=== PATIENT | female | born 1985 | race Hispanic/Latino ===

== ENCOUNTER 2018-02-21 10:54 | Emergency (ER) | payer OTHER ==
[~2018-02-21] VITALS: Ht 149.9 cm; Wt 75.7 kg
[~2018-02-21 10:54] MED LIST: COLACE100 MG PO; FEOSOL325 MG PO; LEVAQUIN500 MG PO
[2018-02-21] MEDS ORDERED: SODIUM CHLORIDE 0.9% 1000ML 1,000 ML IV STA (11:14)
[2018-02-21] MEDS ORDERED: MECLIZINE HCL 12.5 MG TAB PO ONE (11:15)
--- NOTE | 2018-02-21 12:11 | Diagnostic Imaging Report ---
EXAMINATION: Head CT HISTORY: Syncope COMPARISON: None. TECHNIQUE: Multidetector axial images were obtained without contrast from the foramen magnum to the vertex . The images were reconstructed using brain and bone algorithms. Thin section brain images were reformatted into coronal and sagittal planes. Intravenous contrast: None. Motion/streaking artifact limits the evaluation of the skull base and posterior cranial fossa. FINDINGS: Parenchyma: 1. No abnormal densities. 2. No mass or hemorrhage. No CT evidence of acute territorial vascular insult. Extra-axial spaces:No abnormal density. No extra-axial fluid collections Brain volume: Normal for age. Ventricles: No hydrocephalus or displacement. Arteries: No density suggestive of thrombus. Dural sinuses: No abnormal density. Extra-axial spaces: No abnormal density. Foramen magnum: No mass, Chiari malformation, or basilar invagination. Sella: No obvious mass. Paranasal/mastoid sinuses: Imaged portions unremarkable. Skull/Scalp: No lytic or blastic lesions. No fractures. IMPRESSION: Normal head CT. Signed by: Dr. Shabana Che M.D. on 02/21/2018 12:07 PM
[2018-02-21 12:30] LABS: BASOPHILS # (AUTO) 0.1 (0.0-0.1); BASOPHILS % 0.5 % (0.0-1.0); EOSINOPHILS # (AUTO) 0.1 (0.0-0.4); EOSINOPHILS % 0.8 % (0.0-6.0); HEMOGLOBIN 12.1 g/dL (12.0-16.0); LYMPHOCYTES % 25.1 % (18.0-39.1); MEAN CORPUSCULAR HEMOGLOBIN 26.3 pg (28-32); MEAN CORPUSCULAR HGB CONC 32.7 g/dL (31-35); MEAN CORPUSCULAR VOLUME 80.4 fL (81-99); MONOCYTES # (AUTO) 0.9 (0.2-0.8); MONOCYTES % 7.3 % (4.4-11.3); NEUTROPHILS % 65.8 % (38.7-80.0); PLATELET COUNT 346 x10e3/uL (140-360); RED CELL DISTRIBUTION WIDTH 13.5 % (11.7-14.4)
[2018-02-21 12:31] LABS: BILIRUBIN,URINE NEGATIVE (NEGATIVE); KETONES,URINE NEGATIVE (NEGATIVE); LEUKOCYTE ESTERASE ,URINE 1+ (NEGATIVE); NITRITE,URINE NEGATIVE (NEGATIVE); PROTEIN,URINE DIPSTICK NEGATIVE (NEGATIVE); URINE UROBILINOGEN 0.2 mg/dL (0.2 - 1)
[2018-02-21 12:34] LABS: CLARITY,URINE CLEAR (CLEAR); COLOR,URINE YELLOW (YELLOW)
[2018-02-21 12:45] LABS: ALANINE AMINOTRANSFERASE 27 IU/L (0-55); ALBUMIN 3.9 g/dL (3.5-5.0); ALKALINE PHOSPHATASE 83 IU/L (40-150); ANION GAP 11.1 mmol/L (8-16); BLOOD UREA NITROGEN 14 mg/dL (7-26); BUN/CREATININE RATIO 19 (6-25); CALCIUM 9.3 mg/dL (8.4-10.2); CARBON DIOXIDE 29 mmol/L (22-29); CHLORIDE 102 mmol/L (98-107); CREATININE, SERUM 0.73 mg/dL (0.57-1.11); EST GLOMERULAR FILTRATION RATE > 60 ML/MIN (60-); GLUCOSE 96 mg/dL (74-118); POTASSIUM 4.1 mmol/L (3.5-5.1); SODIUM 138 mmol/L (136-145)
[2018-02-21 12:48] LABS: BACTERIA,URINE MANY /HPF; EPITHELIAL CELLS,URINE FEW /LPF
[2018-02-21] MEDS ORDERED: IBUPROFEN 600 MG TAB PO STA (12:54)
== END 2018-02-21 13:43 | disposition home or self-care (01) ==
LOC: ER 10:54
DX: R11.2 Nausea with vomiting, unspecified (principal); H81.399 Other peripheral vertigo, unspecified ear
CPT/HCPCS: 36415; 70450; 80053; 81001; 84702; 85025; 93005; 99284; J7030

== ENCOUNTER 2019-07-15 19:34 | Inpatient (IN) | payer OTHER ==
[~2019-07-15] VITALS: Ht 149.9 cm; Wt 84.4 kg
--- OUTSIDE RECORDS SUMMARY | 2019-07-15 19:36 | XMS REPORT ---
Author Author [facility] Address Unknown Phone Unavailable Care Team Providers Care Investigator Claims Name Role Phone Sergey YOUNG Unavailable Unavailable Payers Payer Name Policy Type Policy Number Effective Date Expiration Date Problems This patient has no known problems. Allergies, Adverse Reactions, Alerts This patient has no known allergies or adverse reactions. Medications This patient has no known medications. Results Test Description Test Time Test Comments Text Results Atomic Results Result Comments - [employer] 2019-07-15 12:04:00 Name: ELODIA LODNONO [facility] : 1985 Age/S: 34 / F [address] [facility] Unit #: [id number] Loc: [place] [address] Phys: Supa Eric MD Acct: [id number] Dis Date: Status: REG CLI PHONE #: [phone] Exam Date: 07/15/2019 1125 FAX #: [phone] Reason: CALCULUS OF KIDNEY WITH CALCULUS OF URETER EXAMS: CPT CODE: [id number] [employer] [id number] HISTORY: Calculus of the kidney. COMPARISON: Ultrasound from September 08, 2016. Both kidneys are free from hydronephrosis. Calyceal stone in the right lower pole measured 1.1 cm. No stones on the left. Relatively normal echogenicity and texture with lobular contour on the right. No perinephric collections. Right kidney measured 9.1 x 4.8 x 4.5 cm. Left kidney measured 14 x 6.2 x 6.1 cm. Unremarkable incompletely distended urinary bladder without wall thickening or mural nodules. Left ureteral jet is documented however the right ureteral jet is not seen. IMPRESSION: No hydronephrosis on either side with 1 cm right lower pole calyceal stone. Normal echogenicity and texture. Ureteral jet is documented on the left but not on the right. No wall thickening within the urinary bladder. No mural nodules. at 1204 Reported and signed by: Morgan Forrest M.D. CC: Supa Eric MD Technologist: KOFI FLOYD RT(R),RDMS [facility] Date/Time: 07/15/2019 (2948) [email or web address] Orig Print D/T: S: 07/15/2019 (9379) Probe: PAGE 1 Signed Report - XR FOOT 3 + V LT 2019-05-31 17:19:00 FAX: Supa Quinones MD [phone] [place]: [address]: REG FAX: Nettie Ngo [phone] Name: ELODIA LONDONO [facility] : 1985 Age/S: 34/F [address] [facility] Unit #: [id number] Loc: [place] [address] Phys: Nettie Ruiz Acct: [id number] Dis Date: Status: REG CLI PHONE #: [phone] Exam Date: 05/31/2019 1700 FAX #: [phone] Reason: PAIN LT FOOT EXAMS: CPT CODE: [id number] XR FOOT 3 + [place] LT [address] REASON FOR EXAM: PAIN LT FOOT EXAM ORDER DATE: 05/31/2019 4:52 PM Ordering Erica: Nettie Ruiz PROCEDURE: - XR FOOT 3 + V LT FINDINGS: 3 views of the left foot were obtained. The osseous structures are unremarkable in size and shape. The joint spaces are maintained. No evidence of fracture. The phalanges are intact. The metatarsal and tarsal bones are unremarkable IMPRESSION: Unremarkable left foot at 2970 Reported and signed by: Rg [facility] M.D. CC: Supa Eric MD; Nettie Ruiz Technologist: Eusebio DE LUNA(R) Trnscrd Date/Time/By: 05/31/2019 (2661) : By: RoseliaL Orig Print D/T: S: 05/31/2019 (8423) PAGE [address] BRAIN WO [place] [address] Patient Name: ELODIA LONDONO I MR #: [id number] : 1985 Age/Sex: 33/F Req #: [id number] Adm Physician: Ordered by: DAVID WILLIAM COMMERCIAL REPRESENTATIVE Report #: [id number] Location: ER Room/Bed: Procedure: [id number] CT/CT BRAIN WO Exam Date: 02/21/18 Exam Time: 1153 REPORT STATUS: Signed EXAMINATION: Head CT HISTORY: Syncope COMPARISON: None. TECHNIQUE: Multidetector axial images were obtained without contrast from the foramen magnum to the vertex . The images were reconstructed using brain and bone algorithms. Thin section brain images were reformatted into coronal and sagittal planes. Intravenous contrast: None. Motion/streaking artifact limits the evaluation of the skull base and posterior cranial fossa. FINDINGS: Parenchyma: 1. No abnormal densities. 2. No mass or hemorrhage. No CT evidence of acute territorial vascular insult. Extra-axial spaces:No abnormal density. No extra-axial fluid collections Brain volume: Normal for age. Ventricles: No hydrocephalus or displacement. Arteries: No density suggestive of thrombus. Dura l sinuses: No abnormal density. Extra-axial spaces: No abnormal density. Foramen magnum: No mass, Chiari malformation, or basilar invagination. Sella: No obvious mass. Paranasal/mastoid sinuses: Imaged portions unremarkable. Skull/Scalp: No lytic or blastic lesions. No fractures. IMPRESSION: Normal head CT. Signed by: Dr. Shabana Che M.D. on 02/21/2018 12:07 PM Dictated By: SHABANA CHE MD 120 Transcribed By: CANDY on 02/21/181206 COPY TO: DAVID WILLIAM NP
[2019-07-15 20:42] LABS: BILIRUBIN,URINE NEGATIVE (NEGATIVE); CLARITY,URINE CLOUDY (CLEAR); COLOR,URINE YELLOW (YELLOW); KETONES,URINE NEGATIVE (NEGATIVE); LEUKOCYTE ESTERASE ,URINE TRACE (NEGATIVE); NITRITE,URINE NEGATIVE (NEGATIVE); PROTEIN,URINE DIPSTICK 1+ (NEGATIVE); URINE UROBILINOGEN 1 mg/dL (0.2 - 1)
[2019-07-15 20:44] LABS: BASOPHILS # (AUTO) 0.1 (0.0-0.1); BASOPHILS % 0.3 % (0.0-1.0); EOSINOPHILS % 0.1 % (0.0-6.0); LYMPHOCYTES # (AUTO) 2.1 (1.0-3.2); MEAN CORPUSCULAR HEMOGLOBIN 24.7 pg (28-32); MEAN CORPUSCULAR HGB CONC 31.4 g/dL (31-35); MEAN CORPUSCULAR VOLUME 78.5 fL (81-99); NEUTROPHILS # (AUTO) 13.5 (2.1-6.9); NEUTROPHILS % 75.9 % (38.7-80.0); PLATELET COUNT 328 x10e3/uL (140-360); RED BLOOD COUNT 4.46 x10e6/uL (3.6-5.1); RED CELL DISTRIBUTION WIDTH 15.5 % (11.7-14.4)
[2019-07-15 20:51] LABS: PREGNANCY TEST, URINE NEGATIVE (NEGATIVE)
[2019-07-15 20:56] LABS: ALANINE AMINOTRANSFERASE 39 IU/L (0-55); ALBUMIN 3.8 g/dL (3.5-5.0); ALBUMIN/GLOBULIN RATIO 0.9 (0.8-2.0); ALKALINE PHOSPHATASE 79 IU/L (40-150); ANION GAP 12.9 mmol/L (8-16); BLOOD UREA NITROGEN 12 mg/dL (7-26); BUN/CREATININE RATIO 13 (6-25); CALCIUM 9.2 mg/dL (8.4-10.2); CARBON DIOXIDE 28 mmol/L (22-29); CHLORIDE 99 mmol/L (98-107); CREATININE, SERUM 0.92 mg/dL (0.57-1.11); EST GLOMERULAR FILTRATION RATE > 60 ML/MIN (60-); GLUCOSE 114 mg/dL (74-118); POTASSIUM 3.9 mmol/L (3.5-5.1); SODIUM 136 mmol/L (136-145)
[2019-07-15 21:17] LABS: AMORPHOUS SEDIMENT,URINE FEW (FEW); BACTERIA,URINE MODERATE /HPF; EPITHELIAL CELLS,URINE MANY /LPF
[2019-07-15] MEDS: ACETAMINOPHEN 325 MG TAB PO PRN (21:45)
[2019-07-15] MEDS ORDERED: IOPAMIDOL 370 MG/ML 200 ML INFUS..BTL INJ ONE (21:48)
[2019-07-15] MEDS ORDERED: SODIUM CHLORIDE 0.9% 50ML 50 ML ONE (21:48)
--- NOTE | 2019-07-15 22:21 | Diagnostic Imaging Report ---
EXAM: CT Abdomen and Pelvis WITH contrast INDICATION: RIGHT FLANK PAIN COMPARISON: None. TECHNIQUE: Abdomen and pelvis were scanned utilizing a multidetector helical scanner from the lung base to the pubic symphysis after administration of IV contrast. Coronal and sagittal reformations were obtained. Routine protocol was performed. Scan was performed when during portal venous phase. IV CONTRAST: 100 mL of Isovue 370 ORAL CONTRAST: Water COMPLICATIONS: None RADIATION DOSE: Total DLP: 648 mGy*cm Estimated effective dose: (DLP x 0.015 x size factor) mSv CTDIvol has been reviewed. It is below the limits set by the Radiation Protocol Committee (RPC). Dose modulation, iterative reconstruction, and/or weight based adjustment of the mA/kV was utilized to reduce the radiation dose to as low as reasonably achievable. FINDINGS: LINES and TUBES: None. LOWER THORAX: Unremarkable HEPATOBILIARY: Relatively low hepatic attenuation and mild hepatomegaly. No focal hepatic lesions. No biliary ductal dilation. GALLBLADDER: No radio-opaque stones or sludge. No wall thickening. SPLEEN: No splenomegaly. PANCREAS: No focal masses or ductal dilatation. ADRENALS: No adrenal nodules KIDNEYS/URETERS: Chronic scarring and volume loss of the mid and inferior pole of the right kidney with a 0.8 cm nonobstructive calculus in the right renal inferior pole calyx. Mild right perinephric fat stranding and mild urothelial thickening of the right renal pelvis and proximal ureter. No hydronephrosis. No cystic or solid mass lesions. GI TRACT: No abnormal distention, wall thickening, or evidence of bowel obstruction. Appendix is normal. PELVIC ORGANS/BLADDER: Small corpus luteum in the left ovary. No radiopaque stones in the bladder lumen. LYMPH NODES: No lymphadenopathy. VESSELS: Unremarkable. PERITONEUM / RETROPERITONEUM: No free air or fluid. BONES: Unremarkable. SOFT TISSUES: There is a fat containing para-umbilical hernia. IMPRESSION: 1. Findings raise suspicion for right ascending urinary tract infection/pyelonephritis on a background of right renal mid and inferior pole scarring. There is also a nonobstructive 0.9 cm calculus in the right renal inferior pole calyx. 2. Hepatomegaly with hepatic steatosis. Signed by: Edgar Miramontes DO on 07/15/2019 10:17 PM
[2019-07-15] MEDS: CEFTRIAXONE SOD 1 GM/NS 50 ML 50 ML IV SCH (22:29)
[2019-07-15] MEDS: SODIUM CHLORIDE 0.9% 1000ML 1,000 ML IV SCH (22:44)
[2019-07-15] MEDS ORDERED: METFORMIN HCL500 M1 PO (22:47)
--- NOTE | 2019-07-15 23:12 | NUR ---
Pt arrived to unit at this time via stretcher. Pt is present. Pt is in no apparent distress. Pt oriented to room and call light. Initial assessment completed, VSS. No fever noted at this time. Pain is 2/10 in the Right Flank. Ice water provided to patient. Will continue to monitor.
[2019-07-15 23:24] VITALS: BP 123/71
[2019-07-16] VITALS (9 sets, daily range): BP systolic 114–158; BP diastolic 57–85
--- NOTE | 2019-07-16 01:36 | NUR ---
Rounds made at this time. Pt has no c/o pain. Warm blanket provided. Will continue to monitor.
[2019-07-16] MEDS: ACETAMINOPHEN 325 MG TAB PO PRN ×2 (03:52→16:31)
[2019-07-16 06:07] LABS: BASOPHILS % 0.2 % (0.0-1.0); HEMATOCRIT 30.7 % (34.2-44.1); HEMOGLOBIN 9.7 g/dL (12.0-16.0); LYMPHOCYTES # (AUTO) 2.3 (1.0-3.2); LYMPHOCYTES % 12.2 % (18.0-39.1); MEAN CORPUSCULAR HEMOGLOBIN 24.9 pg (28-32); MEAN CORPUSCULAR HGB CONC 31.6 g/dL (31-35); MEAN CORPUSCULAR VOLUME 78.7 fL (81-99); MONOCYTES # (AUTO) 2.3 (0.2-0.8); MONOCYTES % 12.5 % (4.4-11.3); NEUTROPHILS # (AUTO) 13.8 (2.1-6.9); NEUTROPHILS % 74.4 % (38.7-80.0); PLATELET COUNT 288 x10e3/uL (140-360); RED CELL DISTRIBUTION WIDTH 15.5 % (11.7-14.4)
[2019-07-16 06:37] LABS: ALANINE AMINOTRANSFERASE 32 IU/L (0-55); ALBUMIN 3.3 g/dL (3.5-5.0); ALBUMIN/GLOBULIN RATIO 0.9 (0.8-2.0); ALKALINE PHOSPHATASE 68 IU/L (40-150); ANION GAP 10.6 mmol/L (8-16); BLOOD UREA NITROGEN 9 mg/dL (7-26); BUN/CREATININE RATIO 12 (6-25); CALCIUM 8.5 mg/dL (8.4-10.2); CARBON DIOXIDE 25 mmol/L (22-29); CHLORIDE 99 mmol/L (98-107); CREATININE, SERUM 0.74 mg/dL (0.57-1.11); EST GLOMERULAR FILTRATION RATE > 60 ML/MIN (60-); GLUCOSE 105 mg/dL (74-118); POTASSIUM 3.6 mmol/L (3.5-5.1); SODIUM 131 mmol/L (136-145)
[2019-07-16] MEDS: SODIUM CHLORIDE 0.9% 1000ML 1,000 ML IV SCH ×2 (06:37→14:51)
--- NOTE | 2019-07-16 07:08 | NUR ---
Consult for Dr. Mackenzie called and placed at this time.
[2019-07-16 07:49] LABS: LYMPHOCYTES % (MANUAL) 12 % (19-48); MONOCYTES % (MANUAL) 12 % (3.4-9.0); NEUTROPHILS % (MANUAL) 76 % (40-74)
[2019-07-16 07:51] LABS: RBC MORPHOLOGY COMMENT NORMAL
[2019-07-16] MEDS: KETOROLAC TROMETHAMINE 30 MG/ML VIAL IV PRN (11:16)
[2019-07-16] MEDS: HYDROMORPHONE 2MG/ML 2 MG/ML ML IV PRN (21:38)
[2019-07-16] MEDS: CEFTRIAXONE SOD 1 GM/NS 50 ML 50 ML IV SCH (21:40)
[2019-07-17] MEDS: SODIUM CHLORIDE 0.9% 1000ML 1,000 ML IV SCH ×4 (00:37→23:35)
[2019-07-17] MEDS: HYDROMORPHONE 2MG/ML 2 MG/ML ML IV PRN (04:35)
[2019-07-17 04:42] VITALS: BP 126/65
[2019-07-17 05:42] LABS: BASOPHILS % 0.3 % (0.0-1.0); EOSINOPHILS % 0.1 % (0.0-6.0); LYMPHOCYTES # (AUTO) 2.3 (1.0-3.2); LYMPHOCYTES % 15.9 % (18.0-39.1); MEAN CORPUSCULAR HEMOGLOBIN 24.7 pg (28-32); MEAN CORPUSCULAR VOLUME 79.7 fL (81-99); MONOCYTES # (AUTO) 1.6 (0.2-0.8); MONOCYTES % 10.9 % (4.4-11.3); NEUTROPHILS # (AUTO) 10.4 (2.1-6.9); NEUTROPHILS % 72.3 % (38.7-80.0); PLATELET COUNT 244 x10e3/uL (140-360); RED BLOOD COUNT 3.64 x10e6/uL (3.6-5.1); RED CELL DISTRIBUTION WIDTH 15.3 % (11.7-14.4)
[2019-07-17 06:01] LABS: ALANINE AMINOTRANSFERASE 30 IU/L (0-55); ALBUMIN/GLOBULIN RATIO 0.8 (0.8-2.0); ALKALINE PHOSPHATASE 74 IU/L (40-150); ANION GAP 12.3 mmol/L (8-16); BLOOD UREA NITROGEN 9 mg/dL (7-26); BUN/CREATININE RATIO 14 (6-25); CALCIUM 8.4 mg/dL (8.4-10.2); CARBON DIOXIDE 23 mmol/L (22-29); CHLORIDE 102 mmol/L (98-107); CREATININE, SERUM 0.66 mg/dL (0.57-1.11); EST GLOMERULAR FILTRATION RATE > 60 ML/MIN (60-); GLUCOSE 90 mg/dL (74-118); POTASSIUM 4.3 mmol/L (3.5-5.1); SODIUM 133 mmol/L (136-145)
[2019-07-17 06:22] LABS: LYMPHOCYTES % (MANUAL) 16 % (19-48); MONOCYTES % (MANUAL) 11 % (3.4-9.0); NEUTROPHILS % (MANUAL) 73 % (40-74)
[2019-07-17 06:24] LABS: PLATELET ESTIMATE MODERATELY INCREASED; RBC MORPHOLOGY COMMENT NORMAL
--- NOTE | 2019-07-17 07:24 | NUR ---
Patient endorsed to next shift for continuity of care.
[2019-07-17 08:16] VITALS: BP 136/70
[2019-07-17] MEDS: ONDANSETRON HCL INJ 2MG/ML 2ML 2 MG/ML VIAL IV PRN (11:44)
--- NOTE | 2019-07-17 11:46 | NUR ---
Dr. Phillips notified regarding n/v. Pt stated she had episode of vomiting this morning, after breakfast. New orders received at this time.
[2019-07-17 11:50] VITALS: BP 130/74
--- NOTE | 2019-07-17 14:22 | NUR ---
Dr. Crawford at bedside. New orders received.
--- NOTE | 2019-07-17 16:35 | NUR ---
Received patient via wheelchair. AAOX4 to time, person, place, situation. Respirations even and unlabored. Oriented patient to room. Instructed to use call light for assistance. Voiced understanding. Will continue to monitor.
[2019-07-17] MEDS: ACETAMINOPHEN 325 MG TAB PO PRN (17:16)
--- NOTE | 2019-07-17 19:10 | NUR ---
Report given to oncoming nurse of patient's status. Resting in bed. No s/s of acute distress noted. Side rails upx2, call light within reach.
[2019-07-17 20:14] VITALS: BP 114/78
[2019-07-17 20:50] VITALS: BP 114/78
[2019-07-17] MEDS: CEFTRIAXONE SOD 1 GM/NS 50 ML 50 ML IV SCH (20:50)
--- NOTE | 2019-07-17 20:50 | NUR ---
PATIENT IS A0X3 NO SIGNS OF DISTRESS NOTED. PATIENT VOICED PAIN AT 2 OUT OF 10 AND SAYS SHE IS FEELING BETTER. IV PUMP IS FLOWING AT ORDERED RATE, BOTH SIDE RAILS ARE UP, BED IS LOCKED AND LOW, CALL LIGHT WITHIN REACH, WILL CONTINUE TO MONITOR.
[2019-07-17 23:31] VITALS: BP 112/76
[2019-07-18] VITALS (7 sets, daily range): BP systolic 98–138; BP diastolic 65–86
[2019-07-18] MEDS: ONDANSETRON HCL INJ 2MG/ML 2ML 2 MG/ML VIAL IV PRN ×2 (02:04→21:20)
[2019-07-18] MEDS: KETOROLAC TROMETHAMINE 30 MG/ML VIAL IV PRN ×2 (02:04→21:20)
[2019-07-18] MEDS: SODIUM CHLORIDE 0.9% 1000ML 1,000 ML IV SCH ×3 (08:31→21:20)
--- NOTE | 2019-07-18 16:22 | NUR ---
patient up in bed, not in any distress, denies any pain this time
[2019-07-18] MEDS: CEFTRIAXONE SOD 1 GM/NS 50 ML 50 ML IV SCH (21:20)
--- NOTE | 2019-07-18 21:20 | NUR ---
PATIENT AOX3 NO DISTRESS NOTED. COMPLAINS OF FLANK PAIN AND WAS MEDICATED ORDERED. IV IS RUNNING AT ORDERED RATE, AND IS PATENT AND FLOWING. BED IS LOCKED AND LOW, CALL LIGHT WITHIN REACH, WILL CONTINUE TO MONITOR.
[2019-07-19] VITALS (9 sets, daily range): BP systolic 110–145; BP diastolic 66–91
[2019-07-19] MEDS: SODIUM CHLORIDE 0.9% 1000ML 1,000 ML IV SCH ×3 (05:39→22:24)
[2019-07-19 06:38] LABS: BASOPHILS # (AUTO) 0.1 (0.0-0.1); BASOPHILS % 0.6 % (0.0-1.0); EOSINOPHILS # (AUTO) 0.2 (0.0-0.4); EOSINOPHILS % 1.9 % (0.0-6.0); HEMATOCRIT 29.7 % (34.2-44.1); HEMOGLOBIN 9.4 g/dL (12.0-16.0); LYMPHOCYTES # (AUTO) 2.7 (1.0-3.2); LYMPHOCYTES % 34.9 % (18.0-39.1); MEAN CORPUSCULAR HGB CONC 31.6 g/dL (31-35); MONOCYTES # (AUTO) 0.6 (0.2-0.8); MONOCYTES % 7.6 % (4.4-11.3); NEUTROPHILS # (AUTO) 4.3 (2.1-6.9); NEUTROPHILS % 54.5 % (38.7-80.0); PLATELET COUNT 251 x10e3/uL (140-360); RED BLOOD COUNT 3.76 x10e6/uL (3.6-5.1); RED CELL DISTRIBUTION WIDTH 15.3 % (11.7-14.4)
[2019-07-19 07:00] LABS: ALANINE AMINOTRANSFERASE 29 IU/L (0-55); ALBUMIN/GLOBULIN RATIO 0.8 (0.8-2.0); ALKALINE PHOSPHATASE 70 IU/L (40-150); ANION GAP 11.9 mmol/L (8-16); BLOOD UREA NITROGEN 9 mg/dL (7-26); BUN/CREATININE RATIO 15 (6-25); CALCIUM 8.9 mg/dL (8.4-10.2); CARBON DIOXIDE 22 mmol/L (22-29); CHLORIDE 110 mmol/L (98-107); EST GLOMERULAR FILTRATION RATE > 60 ML/MIN (60-); GLUCOSE 88 mg/dL (74-118); MAGNESIUM 1.9 MG/DL (1.3-2.1); POTASSIUM 3.9 mmol/L (3.5-5.1); SODIUM 140 mmol/L (136-145)
--- NOTE | 2019-07-19 07:53 | NUR ---
PATIENT UP IN BED, NOT IN ANY DISTRESS, DENIES ANY PAIN THIS TIME, CALL LIGHT IN REACH
--- NOTE | 2019-07-19 12:21 | Consultation ---
DATE OF CONSULTATION: 07/17/2019 Urologic Consultation Consultation is called by Dr. Phillips. CHIEF UROLOGIC COMPLAINT AND REASON FOR CONSULTATION: Pyelonephritis, kidney stone. HISTORY OF PRESENT ILLNESS: Mrs. Lloyd is a very pleasant 34-year-old female in her normal state of health, this began experiencing fevers and chills. She has had a right-sided kidney stone since 2015, which she has never followed up for, has had dysuria. Denied gross hematuria. PAST MEDICAL HISTORY: As above. MEDICATIONS: Please see MAR. ALLERGIES: NKDA. SOCIAL HISTORY: Denied smoking or drinking. FAMILY HISTORY: Denied urologic stones or malignancies. REVIEW OF SYSTEMS: Noncontributory, other than problems mentioned above for 12 organ systems. PHYSICAL EXAMINATION: GENERAL: Middle-aged female, in no acute distress. VITAL SIGNS: Currently, temperature 99.3, pulse 94, respirations 20, and blood pressure 118/57, height 4 feet 11 inches, weight 186 pounds. Sclerae anicteric. NECK: Supple. BACK: Without costovertebral angle tenderness bilaterally. ABDOMEN: Soft. It is nontender. It is nondistended. There is no palpable mass. No palpable hernias. No palpable adenopathy. : Normal female external genitalia. EXTREMITIES: No edema. PSYCH: Alert and mood appropriate. SKIN: Intact. Normal color. PERTINENT LABORATORY DATA: Hemoglobin 9.7, hematocrit 30.7, and platelet count 280,000, white cell count 18,500. Sodium 131, potassium 3.6, chloride 99, bicarb 25, BUN 9, creatinine 0.74, glucose 105. Urinalysis; showing 6 to 10 whites, [address] scan revealing an 8 mm right lower pole renal calculi and no hydronephrosis. IMPRESSION: 1. Right renal calculi. 2. Pyelonephritis. 3. Microscopic hematuria. 4. Urinary tract infection. 5. Leukocytosis. 6. Anemia. PLAN: Begun on broad-spectrum antibiotics. There is no hydronephrosis. No need for stenting at this current time. We will need to clean the urine and perform lithotripsy electively once infection is under control. Thank you for allowing me to participate in the care of your patient. We will be happy to follow along with you. MD JOSE Galeana/MODL /[id number] cc: Bill Phillips MD
--- NOTE | 2019-07-19 13:21 | NUR ---
Received call from Génesis PARK neighborhood planner with [employer] [phone]. She asked that we call her if any assistance needed with discharge planning.
[2019-07-19] MEDS: CEFTRIAXONE SOD 1 GM/NS 50 ML 50 ML IV SCH (21:03)
[2019-07-20] VITALS (7 sets, daily range): BP systolic 108–138; BP diastolic 56–87
[2019-07-20] MEDS: SODIUM CHLORIDE 0.9% 1000ML 1,000 ML IV SCH ×2 (03:38→13:26)
--- NOTE | 2019-07-20 05:45 | Discharge Summary ---
DISCHARGE DIAGNOSES: 1. Kidney stone. 2. Urinary tract infection. 3. Sepsis secondary to urinary tract infection. 4. Leukocytosis, resolved. 5. Anemia. HISTORY OF PRESENT ILLNESS AND HOSPITAL COURSE: See hospital chart for full details. The patient is a lady, who presented with a kidney stone on the left and did not have any evidence of hydronephrosis. She came in with sepsis secondary to urinary tract infection. Unfortunately, cultures did not grow anything, but she has already been on antibiotics for that and she was noticed to have significant white count as well as fevers up to 102, 103. She was placed on IV antibiotics. She made significant improvement, her white count resolved back to normal. Her anemia stayed stable. She was seen by Dr. Mackenzie, who due to her not having hydronephrosis, she did not need stent placement at this time, but it was then elected that she will have outpatient lithotripsy. So, at the time of discharge, the patient is doing very well. She was cleared by Urology to go home. So, she was discharged home on p.o. Macrobid for 10 more days twice a day as well as some p.r.n. tramadol for pain. She will follow up with Dr. Mackenzie for lithotripsy. Please see hospital chart for full details. MD TRAMAINE Levine/SARAH /[id number]
--- NOTE | 2019-07-20 07:07 | NUR ---
RECEIVED PATIENT RESTING IN BED NO SIGNS OF DISTRESS. BED LOW, WHEELS LOCKED, SIDE RAILS X2. CALL LIGHT IN REACH WILL CONTINUE TO MONITOR PATIENT.
--- NOTE | 2019-07-20 10:53 | NUR ---
PATIENT A/O X3, EVEN RESPIRATIONS ON RA. BOWEL SOUNDS X4. LUNG SOUNDS CLEAR TO AUSCULTATION. SKIN INTACT, NO EDEMA. RIGHT AC 20 GAUGE NS @ 75 CC/HR. IV INTACT AND PATENT. PATIENT REPORTS NO PAIN AT THIS TIME. VITAL SIGNS STABLE. CALL LIGHT IN REACH WILL CONTINUE TO MONITOR PATIENT.
--- NOTE | 2019-07-20 13:03 | NUR ---
removed patients iv. catheter tip intact and pressure dressing applied.
--- NOTE | 2019-07-20 14:46 | NUR ---
patient discharged from facility. patient gathered all personal belongings and discharge information. left unit in wheelchair and went home via private auto. no signs of distress when leaving facility.
== END 2019-07-20 14:47 | disposition home or self-care (01) | DRG 872 ==
LOC: ER 19:34 → ERHOLD 22:51 → IMCU 23:19 → OBSVTOIN 07-17 14:18 → MED/SURG2 07-17 16:33
PROVIDERS: ADMIT Internal Medicine; ATTEND Internal Medicine
DX: A41.9 Sepsis, unspecified organism (principal); N12 Tubulo-interstitial nephritis, not specified as acute or chronic; N20.0 Calculus of kidney; D64.9 Anemia, unspecified; E66.9 Obesity, unspecified; Z68.37 Body mass index [BMI] 37.0-37.9, adult
CPT/HCPCS: 36415; 74177; 80053; 81001; 81025; 83735; 85025; 87086; 99284; G0378; J0696; J1885; J2405; J7030; Q9967